=== PATIENT | female | born 1955 | race Caucasian/White ===

== ENCOUNTER 2017-05-17 19:32 | Emergency (ER) | payer MEDICAID, OTHER ==
[2017-05-17] MEDS ORDERED: FLUORESCEIN SODIUM 1 MG STRIP OP ONE (19:48)
[2017-05-17] MEDS ORDERED: PROPARACAINE 0.5% 15 ML OPHT DROP OP ONE (19:49)
[2017-05-17] MEDS ORDERED: OFLOXACIN 0.3% SOLN PREPACK OPHT.BTL TAKEHOME ONE (20:06)
[2017-05-17] MEDS ORDERED: IBUPROFEN 600 MG TAB PO ONE (20:07)
[2017-05-17 20:12] VITALS: BP 157/90; PULSE 78; RESP 16; TEMP 98.2; O2SAT 99
--- NOTE | 2017-05-17 20:17 | EDPHY ---
H & P Time Seen by Provider: 05/17/17 19:37 HPI/ROS: HPI Left eye irritation. 61-year-old female by private vehicle. She complains of left eye irritation and pain starting today in the early afternoon. She reports significant tearing from the left eye as well but no purulent discharge. She does not wear glasses or contact lenses. She denies any history of trauma to the eye or foreign body to the eye. She denies changes in vision. She has had no nausea or vomiting. She denies any blurry vision. She describes the pain as being on the medial aspect of the left eye with associated inflammation of the conjunctiva. She reports that she had this condition but not as severe several months ago. She saw her cooker syrup. She was told it was likely a viral infection and she was treated with steroids. It resolved. ROS: Constitutional: No fever, no chills. No weakness. Eyes: As above. No changes in vision. Respiratory: No cough. No shortness of breath. Musculoskeletal: No back pain. No neck pain. No myalgias or arthralgias. Skin: No rashes. Neurological: No headache. No focal weakness or altered sensation. Past medical history: Takes estrogen supplements. Denies other past medical history. Social history: Nonsmoker. No alcohol. Here by herself. Physical Exam: General Appearance: Alert, no distress. This patient is responding to questions appropriately and in full sentences. This patient appears well- hydrated and well-nourished. Eyes: Pupils equal and round and reactive to light at 3-2 mm. The right eye is normal on gross inspection. The left eye she has conjunctival inflammation involving the medial aspect of the conjunctiva from the medial canthus to the limbus. Guerrero lamp exam with fluorescein staining; no Ary's sign, evidence of abrasion, ulceration, dendritic keratitis or other abnormality. Slit-lamp exam; no hypopyon, no hyphema, anterior chamber is deep and clear, no cell/ flare. The upper and lower lids were everted with no gross evidence of foreign body. The medial canthus this and tear duct is otherwise unremarkable. I do not see evidence of dacryocystitis. Neurological: Motor sensory function is grossly intact. Cranial nerves are normal. Gait is normal. Skin: Warm and dry, no rashes. Musculoskeletal: Neck is supple and nontender. No cervical lymphadenopathy. Extremities are symmetrical. All joints range without pain or impingement. Psychiatric: No agitation. No depression. Database: EKG: Imaging: Procedures: Emergency department course: Vital signs reviewed. After examination as above she was given 600 mg of ibuprofen and started on ofloxacin ophthalmic drops. Plan will be to have her follow up with Dr. Lucas Castañeda or 1 of his partners with the ophthalmology service tomorrow in their office. She feels comfortable with this plan. Return to emergency department precautions were reviewed. Dosing of medications discussed. All of her questions were answered. She was discharged in good condition. Differential Diagnosis: The differential diagnosis on this patient includes but is not limited to conjunctivitis viral versus bacteria, autoimmune disorder. Herpes zoster ophthalmicus, corneal abrasion, corneal ulceration, dacryocystitis, ocular foreign body, orbital cellulitis unlikely. This represents a partial list of diagnoses considered. These considerations are based on history, physical exam , past history, reassessment and diagnostic testing. Constitutional: Initial Vital Signs Temperature (C) 36.8 C 05/17/17 19:35 Heart Rate 78 05/17/17 19:35 Respiratory Rate 16 05/17/17 19:35 Blood Pressure 157/90 H 05/17/17 19:35 O2 Sat (%) 99 05/17/17 19:35 O2 Delivery Mode Room Air Allergies/Adverse Reactions: novacaine Allergy (Mild, Uncoded 09/02/10 19:45) Home Medications: Medication Instructions Recorded Estrogen/Progesterone 05/17/17 Medical Decision Making - Data Points Medications Given: Discontinued Medications Fluorescein Sodium (Evrfr-W-Podrl) 1 mg OP EDNOW ONE Stop: 05/17/17 19:49 Last Admin: 05/17/17 20:07 Dose: 1 mg Ibuprofen (Motrin) 600 mg PO EDNOW ONE Stop: 05/17/17 20:08 Last Admin: 05/17/17 20:18 Dose: 600 mg Ofloxacin (Ocuflox 0.3%) 1 drops LEFTEYE Q4HRS LEW Stop: 06/16/17 21:59 Last Admin: 05/17/17 20:20 Dose: 1 dose Ofloxacin (Ocuflox 0.3% Opht Drops Prepack) 1 btl TAKEHOME EDNOW ONE Stop: 05/17/17 20:07 Last Admin: 05/17/17 20:22 Dose: 1 btl Proparacaine HCl (Alcaine 0.5%) 1 drops OP EDNOW ONE Stop: 05/17/17 19:50 Last Admin: 05/17/17 20:07 Dose: 1 btl Departure - Departure Disposition: Home, Routine, Self-Care Clinical Impression: Conjunctivitis Condition: Good Instructions: Ofloxacin (Into the eye), Conjunctivitis (ED) Additional Instructions: Read and follow provided instructions. Follow-up with Ophthalmology, Dr. Lucas Castañeda or 1 of his partners tomorrow for re-evaluation and further management. Call their office at 8:30 a.m.. Explain this is for an emergency department follow-up appointment. Ibuprofen dosin mg every 6 hours with meals for the next 3 days only. Ofloxacin ophthalmic antibiotic drops: 1-2 drops to left eye day 1 into every 2 -4 hours then on days 3 through 7, 1-2 drops every 6 hr. Unless otherwise directed by slat basket maker helper. Return to the emergency department for worsening symptoms, changes in vision, pain, fever or other serious concerns. Referrals: Luacs Castañeda MD [Medical Doctor] - As per Instructions
[2017-05-17] MEDS ORDERED: OFLOXACIN 0.3% 5ML OPHT DROPS LEFTEYE SCH (22:00)
== END 2017-05-17 20:24 | disposition home or self-care (01) ==
LOC: CED 19:32
DX: H10.9 Unspecified conjunctivitis (principal)

== ENCOUNTER 2017-11-10 09:48 | Emergency (ER) | payer MEDICAID ==
--- NOTE | 2017-11-10 10:40 | EDPHY ---
H & P Stated Complaint: Pt. states fell going up the stairs Mon.,bruising rt bridge of nose,No loc Time Seen by Provider: 11/10/17 09:56 HPI/ROS: This patient explains that she was rapidly going up wooden stairs in her home with wood floor when she caught her flip-flop on the top stairs and struck her forehead against a wooden floor 5 days prior to arrival. She reports immediate headache that has persisted since that time. The headache is in the frontal location. Peak intensity 8/10, currently 2/10, constant since the injury. She denies having LOC or being dazed. However she reports increasing difficulty concentrating and subtle difficulties with her vision. She also feels dizziness and reports the symptoms seem to be getting a bit worse rather than improving. She notes mild associated photophobia over the past few days. She reports that her headache worsens with movement. She has not taken any analgesics for her symptoms. She notes no other exacerbating factors. She canceled work today due to her symptoms and came here for evaluation by private vehicle. ROS: Constitutional: No fevers. HEENT: She reports onset of right periorbital ecchymosis 1 day after the fall that persists. Neuro: Difficulty concentrating seems to be increasing in this patient she reports. She has tingling in bilateral finger tips since the fall. She reports dizziness when she is walking feeling unsteady on her feet which is unusual for her as she typically runs for recreation is been unable to do her due to her symptoms. She also reports subtle blurring of her vision that seems intermittent to her. This is making reading difficult for her. No other focal neuro symptoms. Pulmonary: No chest wall injuries GI: Some nausea associated with the symptoms but no vomiting. No belly pain. Musculoskeletal: No midline neck or back pain from the fall. No extremity injuries. 10 point ROS is otherwise negative. Source: Patient Exam Limitations: No limitations - Personal History Current Tetanus Diphtheria and Acellular Pertussis (TDAP): Yes Tetanus Vaccine Date: 10/2017 - Medical/Surgical History PMH: Otherwise healthy Hx Asthma: No Hx Chronic Respiratory Disease: No Hx Diabetes: No Hx Cardiac Disease: No Hx Renal Disease: No Hx Cirrhosis: No Hx Alcoholism: No Hx HIV/AIDS: No Hx Splenectomy or Spleen Trauma: No Other PMH: PMH-denies. PMS-Intussupcetion @6mo. - Social History Smoking Status: Never smoked Alcohol Use: Rarely Drug Use: None Additional Social History: She works as a hairdresser. - Physical Exam Exam: Physical exam: Vital signs are normal General: Patient is in no acute distress. HEENT: Is no external evidence of trauma on exam. Nose atraumatic. Ears: Clear bilaterally with no hemotympanum. Oropharynx: No dental trauma or malocclusion. No intraoral lacerations. Eyes: Pupils are equal and reactive to light. Extraocular motions are intact. Optic fundi: Clear with no papilledema or hemorrhage. Neck: Trachea is midline with no stridor. The patient has no midline neck tenderness and retains a full range of motion without increase in pain. Lungs: Clear to auscultation bilaterally Cardiac: Regular rate and rhythm no murmur gallop or rub. Chest: Nontender. Abdomen: Soft nontender no organomegaly Back: Nontender Extremities: Atraumatic Neuro: GCS of 15. Cranial nerves II through XII intact. No visual field deficits appreciated on confrontation testing. 3 out of 3 five-minute memory is intact. Cerebellar exam is normal as judged by symmetric rapid hand movements bilaterally. No pronator drift. No sensory or motor deficits are appreciated. Initial differential diagnosis: Concussion with periorbital contusion, subdural hemorrhage, cerebral contusion, frontal sinus fracture, basilar skull fracture Constitutional: Initial Vital Signs Temperature (C) 36.5 C 11/10/17 09:57 Heart Rate 63 11/10/17 09:57 Respiratory Rate 16 11/10/17 09:57 Blood Pressure 156/83 H 11/10/17 09:57 O2 Sat (%) 98 11/10/17 09:57 O2 Delivery Mode Room Air Allergies/Adverse Reactions: novacaine Allergy (Mild, Uncoded 11/10/17 09:56) Home Medications: Medication Instructions Recorded Estrogen/Progesterone 05/17/17 Medical Decision Making ED Course/Re-evaluation: Discussion: Although this patient's initial history did not include LOC or feeling of obviously being dazed, her other findings are also suggestive and consistent with concussion-closed head injury followed by headache of multiple days duration, difficulty concentrating, dizziness, nausea. Because her symptoms were worsening and she felt she is having more difficulties with vision , proceeded with neuro imaging to rule out subdural hemorrhage, cerebral contusion or other complications, effectively ruling these diagnoses out within normal CT head. Regarding the patient's subtle blurring that she reports intermittently, she has 20/30 vision right eye compared to 20/20 OS but she feels this is baseline for her. I appreciated no abnormal findings on exam including oppositional visual field testing. Counseled patient regarding concussion. She understands need to return emergency department should she have any worsening of symptoms despite treatment plan of rest and Tylenol. I also instructed her to follow up closely with Ophthalmology for further evaluation. Departure - Departure Disposition: Home, Routine, Self-Care Clinical Impression: Blurry vision Concussion Qualifiers: Encounter type: initial encounter Loss of consciousness presence/duration: without LOC Qualified Code(s): S06.0X0A - Concussion without loss of consciousness, initial encounter Facial contusion Qualifiers: Encounter type: initial encounter Qualified Code(s): S00.83XA - Contusion of other part of head, initial encounter Condition: Good Instructions: Concussion (ED) Additional Instructions: Diagnosis: 1. Concussion without loss of consciousness 2. Facial contusion 3. Blurry vision Plan: Limit your activity until your headache has resolved Tylenol or ibuprofen okay for your headaches if needed. Hold off on work until your thinking becomes more clear. Call parts chaser-either urine parts chaser with a 1 listed below to arrange follow-up appointment within the next 1 to 4 days-prior to her departure [facility] for further evaluation of ear vision and eyes. Avoid activities but she risk for recurrent head injury until 7 days after all of your current symptoms resolved. Return to the emergency department for any significant worsening of her symptoms despite the plan Referrals: NONE *PRIMARY CARE P,. [Primary Care Provider] - As per Instructions Dinorah Mackey MD [Non Staff Provider (MD)] - As per Instructions
[2017-11-10 11:26] VITALS: BP 151/85
== END 2017-11-10 11:15 | disposition home or self-care (01) ==
LOC: CED 09:48
DX: S06.0X0A Concussion without loss of consciousness, initial encounter (principal); S00.83XA Contusion of other part of head, initial encounter; H53.8 Other visual disturbances; W10.9XXA Fall (on) (from) unspecified stairs and steps, initial encounter; Y92.009 Unspecified place in unspecified non-institutional (private) residence as the place of occurrence of the external cause
CPT/HCPCS: 70450-PO

== ENCOUNTER → 2018-06-07 | Outpatient (CLI) | payer MEDICAID | LOC: GIMAGING 12:59 | PROVIDERS: ATTEND Nurse Practitioner Family | DX: M25.572 Pain in left ankle and joints of left foot (principal) | CPT/HCPCS: 73610-PO ==